=== PATIENT | male | born 1960 | race Caucasian/White ===

== ENCOUNTER → 2016-12-26 | Outpatient (CLI) | payer SELFPAY ==
--- NOTE | 2016-12-26 12:36 | KCIC ---
PROCEDURE Two-view chest. HISTORY Dyspnea on exertion COMPARISON None FINDINGS Two views of the chest are submitted. Heart size is considered within normal limits. There is a granuloma of the right upper lobe. There is no dependent pleural fluid, lobar consolidation, pneumothorax. IMPRESSION There is no radiographic evidence of acute cardiopulmonary disease. Electronically signed by: Houston Shay MD (Dec 26, 2016 12:35:23)
== END | disposition home or self-care (01) ==
LOC: KCIC 11:41
PROVIDERS: ATTEND Family Medicine
DX: R06.00 Dyspnea, unspecified (principal)
CPT/HCPCS: 71020